=== PATIENT | female | born 1960 | race Caucasian/White ===

== ENCOUNTER 2018-05-08 17:35 | Emergency (ER) | payer BC ==
[2018-05-08] MEDS ORDERED: Zofran 4 MG/2 ML VIAL IV ONE (17:48)
--- NOTE | 2018-05-08 17:48 | ERPHSYRPT ---
- History of Present Illness Time Seen by Provider: 05/08/18 17:43 Source: patient, family Exam Limitations: no limitations Physician History: The patient is a 57-year-old female with her complaining of a sudden onset of extreme pain at the top of her head about 15 minutes before arrival. She states it feels like the top of her head is ready to "blow off". She is a little bit nauseated. She denies numbness or tingling. She denies visual problems. Just prior to the onset of the headache she had a bowel movement. She has no history of head trauma. Her past medical history is significant for GERD, allergies, right lower leg fracture, appendectomy, cholecystectomy, and breast implants. Timing/Duration: today (15 mins [employer]), sudden, improved Quality: pressure Head Pain Location: parietal Severity of Pain-Max: severe Severity of Pain-Current: mild Recent Head Trauma: no recent headache/trauma Associated Symptoms: nausea/vomiting (nausea), No loss of consciousness, No stiff neck ( he), No trouble walking, No vision changes, No visual disturbance Previous symptoms: no prior history Allergies/Adverse Reactions: No Known Drug Allergies Allergy (Unverified 05/08/18 17:51) Home Medications: Bupropion HCl 150 mg Sr [Wellbutrin SR 150 MG] 150 mg PO BID 05/08/18 [ History] Escitalopram Oxalate 10 mg PO DAILY 05/08/18 [History] Meclizine HCl 25 mg PO DAILY 05/08/18 [History] Meloxicam 15 mg PO DAILY 05/08/18 [History] Omeprazole 40 mg PO DAILY 05/08/18 [History] - Review of Systems Constitutional: Weakness Eyes: No Symptoms Ears, Nose, & Throat: No Symptoms Respiratory: No Cough, No Dyspnea Cardiac: No Chest Pain, No Edema, No Syncope Abdominal/Gastrointestinal: No Abdominal Pain, No Nausea, No Vomiting, No Diarrhea Genitourinary Symptoms: No Dysuria Musculoskeletal: No Back Pain, No Neck Pain Skin: No Rash Neurological: Headache, No Dizziness, No Focal Weakness, No Paralysis, No Parasthesia, No Seizure, No Sensory Changes, No Speech Changes Psychological: No Symptoms Endocrine: No Symptoms Hematologic/Lymphatic: No Symptoms Immunological/Allergic: No Symptoms All Other Systems: Reviewed and Negative - Nursing Vital Signs Nursing Vital Signs: Initial Vital Signs Temperature 99.0 F 05/08/18 17:37 Pulse Rate 88 05/08/18 17:37 Respiratory Rate 16 05/08/18 17:37 Blood Pressure 142/87 05/08/18 17:37 O2 Sat by Pulse Oximetry 99 05/08/18 17:37 Pain Scale Pain Intensity 1 - Physical Exam General Appearance: mild distress Eye Exam: PERRL/EOMI Ears, Nose, Throat Exam: normal ENT inspection, moist mucous membranes Neck Exam: normal inspection, supple, full range of motion, No meningismus Respiratory Exam: normal breath sounds, lungs clear Cardiovascular Exam: regular rate/rhythm, normal heart sounds Gastrointestinal/Abdominal Exam: soft, No tenderness, No distention Back Exam: normal inspection, normal range of motion Extremity Exam: normal inspection Mental Status Exam: alert, oriented x 3, cooperative motor vehicle clerk Exam: normal speech, PERRL, tongue midline, No abnormal speech, No facial droop, No hearing deficit (R), No hearing deficit (L), No tongue deviation to R , No tongue deviation to L Coordination/Gait Exam: normal cerebellar function Motor/Sensory Exam: no motor deficit, no sensory deficit Skin Exam: normal color, warm, dry, No rash SpO2 Interpretation: normal Oxygen Delivery: Room Air - CT Exams Head CT Interpretation: Discussed w/radiologist, Tele-radiologist Report, Other ( left parietal and temporal subarachnoid hemorrhage per Dr Hays (discussed with him).) Ordered Tests: Active Orders 24 hr Category Date Time Status Data Communications Technician STAT Care 05/08/18 17:49 Active Clean Catch Urine Specimen STAT Care 05/08/18 17:48 Active IV Insertion STAT Care 05/08/18 17:48 Active IV Insertion-2nd Peripheral STAT Care 05/08/18 19:01 Active Pulse Oximetry (ED) STAT Care 05/08/18 17:48 Active HEAD WITHOUT CONTRAST [CT] Stat Exams 05/08/18 17:49 Taken BMP Stat Lab 05/08/18 17:50 Completed CBC W DIFF Stat Lab 05/08/18 17:50 Completed UA W/ MICROSCOPIC Stat Lab 05/08/18 18:51 Completed Urine Triage Profile Stat Lab 05/08/18 18:51 Completed Medication Summary Generic Name Dose Route Start Last Admin Trade Name Freq PRN Reason Stop Dose Admin Sodium Chloride 1,000 mls @ 100 mls/hr 05/08/18 19:15 05/08/18 19:16 Sodium Chloride 0.9% 1000 Ml IV 06/07/18 19:14 100 mls/hr .Q10H FELIPA Administration Discontinued Medications Generic Name Dose Route Start Last Admin Trade Name Rk PRN Reason Stop Dose Admin Labetalol HCl 10 mg 05/08/18 19:30 05/08/18 19:35 Trandate 20 Mg/5 Ml Syringe IV 05/08/18 19:31 10 mg STAT ONE Administration Labetalol HCl Confirm 05/08/18 19:32 Trandate 20 Mg/5 Ml Syringe Administered 05/08/18 19:33 Dose 20 mg IV .STK-MED ONE Morphine Sulfate 4 mg 05/08/18 19:09 05/08/18 19:16 Morphine Sulfate 4 Mg Inj IV 05/08/18 19:10 4 mg STAT ONE Administration Morphine Sulfate Confirm 05/08/18 19:13 Morphine Sulfate 4 Mg Inj Administered 05/08/18 19:14 Dose 4 mg .ROUTE .STK-MED ONE Ondansetron HCl 4 mg 05/08/18 17:48 05/08/18 17:56 Zofran 4 Mg/2 Ml Vial IV 05/08/18 17:49 4 mg STAT ONE Administration Ondansetron HCl Confirm 05/08/18 17:55 Zofran 4 Mg/2 Ml Vial Administered 05/08/18 17:56 Dose 4 mg .ROUTE .STK-MED ONE Lab/Rad Data: Laboratory Result [facility] 05/08/18 17:50 05/08/18 17:50 Laboratory Results 05/08/18 05/08/18 05/08/18 Range/Units 18:51 18:51 17:50 WBC (4.0-10.5) K/mm3 RBC (4.1-5.4) M/mm3 Hgb (12.0-16.0) gm/dl Hct (35-47) % MCV (78-100) fl MCH (26-32) pg MCHC (32-36) g/dl RDW (11.5-14.0) % Plt Count (150-450) K/mm3 MPV (6-9.5) fl Gran % (36.0-66.0) % Eos # (Auto) (0-0.5) Absolute Lymphs (auto) (1.0-4.6) Absolute Monos (auto) (0.0-1.3) Lymphocytes % (24.0-44.0) % Monocytes % (0.0-12.0) % Eosinophils % (0.00-5.0) % Basophils % (0.0-0.4) % Absolute Granulocytes (1.4-6.9) Basophils # (0-0.4) Sodium 139 (137-145) mmol/L Potassium 3.6 (3.5-5.1) mmol/L Chloride 105 (98-107) mmol/L Carbon Dioxide 25 (22-30) mmol/L Anion Gap 13.0 (5-15) MEQ/L BUN 12 (7-17) mg/dL Creatinine 0.86 (0.52-1.04) mg/dL Estimated GFR > 60.0 ML/MIN Glucose 125 H (74-106) mg/dL Calcium 9.1 (8.4-10.2) mg/dL Ur Collection Type VOID Urine Color YELLOW (YELLOW) Urine Appearance CLEAR (CLEAR) Urine pH 7.0 (5-6) Ur Specific [place] 1.010 (1.005-1.025) Urine Protein NEGATIVE (Negative) Urine Ketones NEGATIVE (NEGATIVE) Urine Blood TRACE NON-HEM (0-5) Olu/ul Urine Nitrite NEGATIVE (NEGATIVE) Urine Bilirubin NEGATIVE (NEGATIVE) Urine Urobilinogen NORMAL (0-1) mg/dL Ur Leukocyte Esterase NEGATIVE (NEGATIVE) Urine Microscopic RBC 2-5 (0-2) /HPF Urine Microscopic WBC 5-10 (0-5) /HPF Ur Epithelial Cells MODERATE (FEW) /HPF Urine Bacteria FEW (NEGATIVE) /HPF Urine Culture Reflexed NO (NO) Urine Glucose NEGATIVE (NEGATIVE) mg/dL Urine Opiates Level NEGATIVE (NEGATIVE) Ur Methadone NEGATIVE (NEGATIVE) Urine Barbiturates NEGATIVE (NEGATIVE) Ur Phencyclidine (PCP) NEGATIVE (NEGATIVE) Urine Amphetamine NEGATIVE (NEGATIVE) U Benzodiazepine Level NEGATIVE (NEGATIVE) Urine Cocaine NEGATIVE (NEGATIVE) Urine Marijuana (THC) NEGATIVE (NEGATIVE) Specimen Received 05/08/18 1850 05/08/18 Range/Units 17:50 WBC 12.1 H (4.0-10.5) K/mm3 RBC 4.14 (4.1-5.4) M/mm3 Hgb 11.7 L (12.0-16.0) gm/dl Hct 35.6 (35-47) % MCV 86.0 (78-100) fl MCH 28.2 (26-32) pg MCHC 32.9 (32-36) g/dl RDW 14.5 H (11.5-14.0) % Plt Count 302 (150-450) K/mm3 MPV 11.1 H (6-9.5) fl Gran % 57.7 (36.0-66.0) % Eos # (Auto) 0.40 (0-0.5) Absolute Lymphs (auto) 3.67 (1.0-4.6) Absolute Monos (auto) 1.02 (0.0-1.3) Lymphocytes % 30.4 (24.0-44.0) % Monocytes % 8.4 (0.0-12.0) % Eosinophils % 3.3 (0.00-5.0) % Basophils % 0.2 (0.0-0.4) % Absolute Granulocytes 6.97 H (1.4-6.9) Basophils # 0.02 (0-0.4) Sodium (137-145) mmol/L Potassium (3.5-5.1) mmol/L Chloride (98-107) mmol/L Carbon Dioxide (22-30) mmol/L Anion Gap (5-15) MEQ/L BUN (7-17) mg/dL Creatinine (0.52-1.04) mg/dL Estimated GFR ML/MIN Glucose (74-106) mg/dL Calcium (8.4-10.2) mg/dL Ur Collection Type Urine Color (YELLOW) Urine Appearance (CLEAR) Urine pH (5-6) Ur Specific [place] (1.005-1.025) Urine Protein (Negative) Urine Ketones (NEGATIVE) Urine Blood (0-5) Olu/ul Urine Nitrite (NEGATIVE) Urine Bilirubin (NEGATIVE) Urine Urobilinogen (0-1) mg/dL Ur Leukocyte Esterase (NEGATIVE) Urine Microscopic RBC (0-2) /HPF Urine Microscopic WBC (0-5) /HPF Ur Epithelial Cells (FEW) /HPF Urine Bacteria (NEGATIVE) /HPF Urine Culture Reflexed (NO) Urine Glucose (NEGATIVE) mg/dL Urine Opiates Level (NEGATIVE) Ur Methadone (NEGATIVE) Urine Barbiturates (NEGATIVE) Ur Phencyclidine (PCP) (NEGATIVE) Urine Amphetamine (NEGATIVE) U Benzodiazepine Level (NEGATIVE) Urine Cocaine (NEGATIVE) Urine Marijuana (THC) (NEGATIVE) Specimen Received - Progress Progress: re-examined, unchanged Air Movement: good Progress Note: 05/08/18 19:[address] Gautam, neurosurgeon, at [facility] in [place], who declines pt and recommends transfer of pt to hospital in [place] by air transport. Dr Chisholm at [facility] was present on phone call with Dr Gautam. 05/08/18 19:26 Dr Mejia, neurosurgeon at [facility], accepts pt, ground travel. Counseled pt/family regarding: diagnosis, rad results - Departure Time of Disposition: 19:06 Departure Disposition: Transfer (transfer to [facility] in [place] per Dr Mejia.) Clinical Impression: Subarachnoid hemorrhage Condition: Good Critical Care Time: No Referrals: ROSA MARIA DAVE [Primary Care Provider] -
[2018-05-08] MEDS ORDERED: Zofran 4 MG/2 ML VIAL ONE (17:55)
[2018-05-08 18:27] LABS: BLOOD UREA NITROGEN 12 mg/dL (7-17); CHLORIDE 105 mmol/L (98-107); Calcium 9.1 mg/dL (8.4-10.2); Carbon Dioxide 25 mmol/L (22-30); Creatinine 1 0.86 mg/dL (0.52-1.04); Glucose 125 mg/dL (74-106); Potassium 3.6 mmol/L (3.5-5.1); SODIUM 139 mmol/L (137-145)
[2018-05-08 18:28] LABS: BASOPHIL % 0.2 % (0.0-0.4); Basophil (Absolute #) 0.02 (0-0.4); Eosinophil % 3.3 % (0.00-5.0); Granulocyte Absolute (ANC) 6.97 (1.4-6.9); Granulocytes % 57.7 % (36.0-66.0); Hematocrit 35.6 % (35-47); Hemoglobin 11.7 gm/dl (12.0-16.0); Lymphocyte (Absolute #) 3.67 (1.0-4.6); Lymphocytes % 30.4 % (24.0-44.0); Mean Corpuscular Hgb Concent. 32.9 g/dl (32-36); Mean Platelet Volume 11.1 fl (6-9.5); Monocyte (Absolute #) 1.02 (0.0-1.3); Monocytes % 8.4 % (0.0-12.0); Platelet Count 302 K/mm3 (150-450); Red Blood Count 4.14 M/mm3 (4.1-5.4); Red Cell Distribution Width 14.5 % (11.5-14.0); White Blood Count 12.1 K/mm3 (4.0-10.5)
[2018-05-08 18:59] LABS: Mean Corpuscular Hemoglobin 28.2 pg (26-32)
[2018-05-08] MEDS ORDERED: MORPHINE SULFATE 4 MG INJ IV ONE (19:09)
[2018-05-08 19:12] LABS: Appearance CLEAR (CLEAR)
[2018-05-08 19:13] LABS: Bacteria FEW /HPF (NEGATIVE); Bilirubin NEGATIVE (NEGATIVE); Blood TRACE NON-HEM Ery/ul (0-5); Epithelial Cells MODERATE /HPF (FEW); Glucose NEGATIVE (NEGATIVE); Ketones NEGATIVE (NEGATIVE); Leukocyte Esterase NEGATIVE (NEGATIVE); Nitrite NEGATIVE (NEGATIVE); Protein,Urine Dip NEGATIVE (Negative); Urobilinogen NORMAL mg/dL (0-1)
[2018-05-08] MEDS ORDERED: MORPHINE SULFATE 4 MG INJ ONE (19:13)
[2018-05-08] MEDS ORDERED: Sodium Chloride 0.9% 1000 ML 1,000 ML ONE (19:13)
[2018-05-08] MEDS ORDERED: Sodium Chloride 0.9% 1000 ML 1,000 ML IV SCH (19:15)
[2018-05-08 19:20] LABS: Amphetamine,Urine NEGATIVE (NEGATIVE); Barbiturate,Urine NEGATIVE (NEGATIVE); Benzodiazepine,Urine NEGATIVE (NEGATIVE); Cocaine,Urine NEGATIVE (NEGATIVE); Methadone,Urine NEGATIVE (NEGATIVE); Opiate,Urine NEGATIVE (NEGATIVE); PCP,Urine NEGATIVE (NEGATIVE); THC,Urine NEGATIVE (NEGATIVE)
[2018-05-08] MEDS ORDERED: TRANDATE 20 MG/5 ML SYRINGE IV ONE ×3 (19:30→19:59)
[2018-05-08 19:49] VITALS: BP 133/85; PULSE 81; O2SAT 98
--- NOTE | 2018-05-08 20:34 | XRAY ---
Indication: Headache and nausea. Pressure behind eyes. Multiple contiguous axial images obtained through the head without contrast. Comparison: None Very tiny subarachnoid blood in the left sylvian fissure. No hydrocephalus or mass effect. Burk-white matter differentiation preserved. Fourth ventricle is midline. Bony calvarium intact. Visualized paranasal sinuses and mastoid air cells are clear. Impression: Very tiny left sylvian fissure subarachnoid blood of uncertain etiology. Comment: Preliminary interpretation was made by [facility]. No discrepancy. CTDI 50.97
== END 2018-05-08 20:05 | disposition short-term general hospital (02) ==
LOC: ED 17:35
DX: I60.9 Nontraumatic subarachnoid hemorrhage, unspecified (principal); Z79.899 Other long term (current) drug therapy
CPT/HCPCS: 36000; 36415; 70450; 80048; 80307; 81000; 85025; 93041; 96360; 96374; 96375; 99285; J2270; J2405

== ENCOUNTER 2019-10-02 08:32 | Inpatient (IN) | payer BC ==
[2019-10-02] MEDS: POTASSIUM CHLORIDE 20 mEq IN WATER 100ML 20 MEQ/100 ML BAG IV SCH ×2 (18:16→22:22)
[2019-10-02] MEDS: Sodium Chloride 0.9% 1000 ML 1,000 ML IV SCH (18:16)
[2019-10-02] MEDS: TYLENOL 325 MG PO PRN ×2 (18:17→22:35)
[2019-10-02 18:27] LABS: Iron 18 ug/dL (37-170); Iron Saturation 6 % (20-39); TIBC 292 ug/dL (265-462)
[2019-10-02 19:08] LABS: Ferritin 11.2 ng/mL (11.1-264); MAGNESIUM 1.6 mg/dL (1.6-2.3)
[2019-10-02] MEDS ORDERED: Magnesium Sulfate 1 GM/2 ML VIAL IV ONE (20:15)
[2019-10-02] MEDS ORDERED: Klor Con 10 MEQ PO ONE (20:20)
[2019-10-02] MEDS ORDERED: Vitamin B-12 500 MCG PO ONE (20:30)
[2019-10-02] MEDS ORDERED: Magnesium Sulfate 1 GM/2 ML VIAL ONE (20:34)
[2019-10-02] MEDS ORDERED: Sodium Chloride 0.9% 500 ML 500 ML IV ONE (22:12)
[2019-10-02] MEDS ORDERED: POTASSIUM CHLORIDE 20 mEq IN WATER 100ML 100 ML IV ONE (22:14)
[2019-10-02] MEDS: Pepcid 20 MG PO SCH (22:30)
[2019-10-02] MEDS: FEOSOL 325 MG PO SCH (22:30)
[2019-10-02] MEDS: Magnesium 1 Gm / 100 Ml D5W*** 100 ML IV SCH (22:30)
[2019-10-02] MEDS ORDERED: Sodium Chloride 0.9% 500 ML 500 ML IV SCH (22:30)
[2019-10-03] MEDS: Magnesium 1 Gm / 100 Ml D5W*** 100 ML IV SCH (00:11)
[2019-10-03 01:52] LABS: Appearance CLEAR (CLEAR); Bilirubin NEGATIVE (NEGATIVE); Blood NEGATIVE Ery/ul (0-5); Glucose NEGATIVE (NEGATIVE); Ketones NEGATIVE (NEGATIVE); Leukocyte Esterase NEGATIVE (NEGATIVE); Mucus SLIGHT /HPF (NEGATIVE); Nitrite NEGATIVE (NEGATIVE); Protein,Urine Dip NEGATIVE (Negative); Specific Gravity 1.004 (1.005-1.025); Urobilinogen NEGATIVE mg/dL (0-1)
[2019-10-03 02:04] LABS: Creatinine Urine 37.5 mg/dL
[2019-10-03] MEDS: Sodium Chloride 0.9% 1000 ML 1,000 ML IV SCH ×3 (02:29→18:23)
[2019-10-03 04:24] LABS: ANION GAP 10.5 MEQ/L (5-15); Calcium 8.3 mg/dL (8.4-10.2); Creatinine 1 2.07 mg/dL (0.52-1.04)
[2019-10-03 04:30] LABS: Potassium 2.3 mmol/L (3.5-5.1)
[2019-10-03 04:33] LABS: Hematocrit 27.6 % (35-47); Mean Cell Volume 85.4 fl (78-100); Mean Corpuscular Hemoglobin 27.9 pg (26-32); Mean Corpuscular Hgb Concent. 32.6 g/dl (32-36); Mean Platelet Volume 11.1 fl (6-9.5); Platelet Count 228 K/mm3 (150-450); Red Blood Count 3.23 M/mm3 (4.1-5.4); Red Cell Distribution Width 17.3 % (11.5-14.0)
[2019-10-03] MEDS ORDERED: POTASSIUM CHLORIDE 20 mEq IN WATER 100ML 20 MEQ/100 ML BAG IV ONE ×2 (04:35→08:51)
[2019-10-03] MEDS: TYLENOL 325 MG PO PRN (05:44)
[2019-10-03] MEDS ORDERED: Klor Con 10 MEQ PO ONE ×2 (08:05→17:11)
[2019-10-03] MEDS ORDERED: Wellbutrin SR 150 MG PO SCH (10:00)
[2019-10-03] MEDS: Colace 100 MG PO SCH ×2 (10:10→21:00)
[2019-10-03] MEDS: Vitamin B-12 500 MCG PO SCH (10:11)
[2019-10-03] MEDS: ANTIVERT 25 MG PO SCH (10:11)
[2019-10-03] MEDS: FEOSOL 325 MG PO SCH ×2 (10:12→21:00)
[2019-10-03] MEDS: DELTASONE 20 MG PO SCH (10:12)
[2019-10-03] MEDS: Protonix 40MG Tablet PO SCH (10:12)
[2019-10-03] MEDS: SENOKOT 8.6 MG PO PRN (10:13)
[2019-10-03] MEDS: THERAGRAN MULTIVITAMIN PO SCH (10:13)
[2019-10-03] MEDS: Lexapro 10 MG PO SCH (10:13)
--- NOTE | 2019-10-03 10:26 | XRAY ---
Exam: Two-view chest from 10/03/2019. Comparison: None. Indication: Weight loss in the past 2 months, previous cigarette smoker, status post breast augmentation, patient states she was sick 3 weeks ago and short of breath at that time. Findings: Upright PA and lateral chest films are submitted for evaluation. The transverse heart size is normal. Minimal tortuosity of the aortic arch is seen. A few small right perihilar granulomatous calcifications are seen. Numerous leads overlie the chest, most prominently in the projection of the right hemidiaphragm. A calcified granuloma is seen within the peripheral right midlung field. There is also a small calcified granuloma at the lateral left lung base. No air space infiltrates, vascular congestion, pneumothorax, or pleural fluid is seen. Mild degenerative changes are seen within the upper mid thoracic spine. No acute osseous process is seen. Small calcified granulomas are seen within the spleen in the left upper quadrant. Some surgical clips are seen within the upper abdomen on lateral radiograph, likely due to prior cholecystectomy. Impression: 1. I see no evidence of acute cardiopulmonary process. 2. Mild old healed granulomatous disease.
--- NOTE | 2019-10-03 13:05 | HP ---
HISTORY OF PRESENT ILLNESS: This is a 59 year-old patient who presented to the clinic yesterday complaining of left wrist pain. She said it started suddenly and woke her up from sleep the night before. She denied any known injury. There was concern for possible gout so I ordered a uric acid level as well as x-ray since has not had any other blood work done within the last year. I also ordered a basic metabolic panel. I was then called with critical potassium of 2.1 and her creatinine was elevated to 2 as well. The patient was called and was agreeable to being a direct admission for IV fluids and potassium replacement. The patient reports that she had flu-like symptoms for two weeks. She described this as loose stools but not really diarrhea, feeling tired and nothing tasting good. She had decreased oral intake during that time. She reports vomiting for three days during that time, nausea the whole time. She had a little bit of cough and a little bit of rhinorrhea. Her baseline weight is 145 pounds and she reports she has lost weight over the past two months about 20 pounds with 5 pounds of that during the illness. She reports constipation on and off for months. She denies any abdominal pain. Reports she has not had any stools for the past five days. Her no blood in her stool. She has never had screening for colon cancer. She reports usually she just eats one meal a day due to being busy and decreased appetite. REVIEW OF SYSTEMS: No fevers. No lower extremity edema. No pain with urination. No hematuria. Otherwise review of systems as noted in the history of present illness. MEDICATIONS: Please see the home medication reconciliation form which I have reviewed. ALLERGIES: NKDA. PAST MEDICAL HISTORY: Anxiety. Gastroesophageal reflux disease for ten years which she has taken medication for. Voice change for which she saw ENT for. She reports they did a scope and found a "pool of blood" and then started her on another acid medicine. History of a brain aneurysm in 2018 status post surgery. PAST SURGICAL HISTORY: Cholecystectomy. Appendectomy. Brain aneurysm surgery. Cyst removed from her right wrist. Two sections. Tubal ligation. Breast augmentation. SOCIAL HISTORY: She quit smoking in May 2018 and had smoked for 40 years. Rare alcohol use. She is and lives with her . They have three dogs. FAMILY HISTORY: Her mother is living and has hypertension, headaches, diabetes mellitus type 2, borderline macular degeneration and glaucoma. Her father is and in his sleep. PHYSICAL EXAMINATION: VITAL SIGNS: Temperature current 97.7F, heart rate 63, respiratory rate 16, blood pressure 109/55, weight 60 kg. Oxygen saturation 96% on room air. GENERAL: The patient is a pleasant talkative lady lying in bed in no acute distress. Her sister is at the bedside. CVS: She has a regular rate and rhythm. No murmurs, gallops or rubs are appreciated. CHEST: Clear to auscultation bilaterally. No crackles or wheezes. ABDOMEN: Soft, nontender, nondistended with normal bowel sounds. EXTREMITIES: No clubbing, cyanosis or edema in the lower extremities. Her left wrist is mildly swollen with tenderness medially below her fifth digit and her wrist. No rashes. No erythema. LABORATORY DATA AND TESTS: Hemoglobin 9.0. Potassium 2.3, creatinine 2.0. UA was negative. Vitamin B12 low at 228. Iron low at 18. Magnesium 1.6. ASSESSMENT AND PLAN: 1) HYPOKALEMIA: The etiology of this could be poor oral intake versus renal etiology. Her potassium was 2.1 yesterday. She has received 40 mEq IV as well as 20 mEq by mouth and her repeat potassium was 2.3. She has another 40 mEq ordered IV and 20 mEq by mouth and will plan to recheck her potassium. Her magnesium was the low end of normal and so I gave her 2 gm of magnesium sulfate to try to help also the potassium replenishment. The patient was encouraged to start eating regular meals at home with three meals a day and not to skip meals. 2) ANEMIA: She seems to have an iron deficiency anemia. I have ordered her stool to be tested for blood. The patient was encouraged to follow up on all cancer screenings recommended for her age which would include a low dose CT scan to screen for lung cancer, colon cancer screening and mammogram for breast cancer screening. I have started her on iron, ferrous sulfate 325 mg p.o. b.i.d. as well as a multivitamin and also vitamin B12. 3) WEIGHT LOSS: Again the etiology of this is unclear at this time. Will plan for her to have cancer screenings as an outpatient. If her weight does not increase with this she may need a CT scan of her abdomen and pelvis. 4) ACUTE RENAL FAILURE: We are giving her IV fluids at 150 ml/hour, checking her BMP every morning. I have ordered renal ultrasound bilaterally to assess the structures. She does not have any protein in her urine, this may be due to dehydration. 5) MILD DEHYDRATION: Will continue with IV fluids. 6) CONSTIPATION: Will start docusate and use Senna as needed. 7) LEFT WRIST PAIN: Her x-ray was without fracture. It does show some arthritis. I have started her on prednisone 20 mg p.o. daily to try to help with the pain and ordered a wrist splint. 8) DEEP VENOUS THROMBOSIS PROPHYLAXIS: Will start with SARMAD jeronimo.
--- NOTE | 2019-10-03 14:41 | XRAY ---
Exam: Bilateral renal ultrasound from 10/03/2019. Comparison: None. Indication: 59-year-old female with acute renal failure. Technique: Longitudinal and transverse sonograms were obtained of each kidney. Findings: The right kidney measures 8.2 cm in length and 4.4 cm x 4.1 cm in cross section. No hydronephrosis is seen. No solid renal mass or significant cyst is seen. The renal cortical echogenicity appears grossly unremarkable. No significant renal cortical thinning is seen. The left kidney measures 9.3 cm in length and 5.4 cm x 4.8 cm in cross section. No hydronephrosis is seen. No solid left renal mass or significant cyst is seen. Renal cortical echogenicity appears unremarkable without evidence of cortical thinning or lobar atrophy. Urinary bladder volume was calculated at 12.9 ml. The bladder appears almost empty. Evidently, the patient voided prior to this exam. Impression: 1. I see no evidence of hydronephrosis. Nor do I see any evidence of solid renal mass or significant cyst. 2. The right renal length is mildly decreased measuring 8.2 cm in length. This may be slightly underestimated. I do not see evidence of lobar atrophy or significant renal cortical thinning. Renal cortical echogenicity appears unremarkable. 2. The urinary bladder is almost empty. Evidently, the patient voided just prior to this exam.
[2019-10-03] MEDS: Pepcid 20 MG PO SCH (21:00)
[2019-10-04] MEDS: Sodium Chloride 0.9% 1000 ML 1,000 ML IV SCH ×2 (03:09→06:00)
[2019-10-04 04:50] LABS: Absolute Neutrophil Ct (ANC) 7.23 (1.4-6.9); BASOPHIL % 0.1 % (0.0-0.4); Basophil (Absolute #) 0.01 (0-0.4); Eosinophil % 0.1 % (0.00-5.0); Eosinophil (Absolute #) 0.01 (0-0.5); Lymphocyte (Absolute #) 1.22 (1.0-4.6); Lymphocytes % 13.6 % (24.0-44.0); Mean Cell Volume 86.8 fl (78-100); Mean Corpuscular Hgb Concent. 32.3 g/dl (32-36); Mean Platelet Volume 10.8 fl (6-9.5); Monocyte (Absolute #) 0.48 (0.0-1.3); Monocytes % 5.4 % (0.0-12.0); Neutrophil % 80.8 % (36.0-66.0); Platelet Count 285 K/mm3 (150-450); Red Blood Count 3.57 M/mm3 (4.1-5.4); Red Cell Distribution Width 18.1 % (11.5-14.0)
[2019-10-04 05:06] LABS: ANION GAP 13.3 MEQ/L (5-15); Calcium 8.7 mg/dL (8.4-10.2); Creatinine 1 1.79 mg/dL (0.52-1.04); MAGNESIUM 2.1 mg/dL (1.6-2.3)
[2019-10-04 05:07] LABS: Potassium 2.7 mmol/L (3.5-5.1)
[2019-10-04] MEDS: POTASSIUM CHLORIDE 20 mEq IN WATER 100ML 20 MEQ/100 ML BAG IV SCH (06:02)
--- NOTE | 2019-10-04 08:37 | PCM.NOTE ---
Date and Time: 10/04/19831 Subjective Assessment: Patient reports she had a stool but it was hard and she still feels constipated. She reports her left wrist does feel better now. She reports that her mouth continues to feel dry. Objective Exam General Appearance: no apparent distress, alert, other (dry mouth) Neurologic Exam: alert, cooperative, normal mood/affect Skin Exam: normal color, warm, dry Respiratory Exam: normal breath sounds, lungs clear, No crackles/rales, No rhonchi, No wheezing Cardiovascular Exam: regular rate/rhythm, normal heart sounds, No murmur, No friction rub, No gallop Gastrointestinal/Abdomen Exam: soft, normal bowel sounds, No tenderness, No distention, No mass Extremity Exam: other (no c/c/e; left wrist in brace and removed brace and no swelling and no tenderness today. She is able to touch her thumb to each finger individually.) OBJECTIVE DATA Vital Signs: Vital Signs - 24 hr Temp Pulse Resp BP Pulse Ox 10/04/19 08:00 98.1 F 74 18 110/56 98 10/04/19 04:00 97.9 F 73 16 121/58 96 10/03/19 23:50 98.1 F 77 16 114/59 97 10/03/19 20:00 97.7 F 73 18 117/56 98 10/03/19 16:00 98.3 F 75 16 101/53 98 10/03/19 12:00 98.1 F 71 16 116/61 97 Pain Assessment - Last Documented Pain Intensity 0 Pain Scale Used 0-10 Pain Scale Intake and Output: Intake & Output 10/02/19 10/03/19 10/04/19 10/05/19 06:59 06:59 06:59 06:59 Intake Total 2440 3794 Output Total 1200 1300 Balance 1240 2494 Weight 60 kg Lab Results: Lab Results-Last 24 Hours 10/03/19 10/04/19 10/04/19 Range/Units 16:45 01:16 04:35 WBC 9.0 (4.0-10.5) K/mm3 RBC 3.57 L (4.1-5.4) M/mm3 Hgb 10.0 L (12.0-16.0) gm/dl Hct 31.0 L (35-47) % MCV 86.8 (78-100) fl MCH 28.0 (26-32) pg MCHC 32.3 (32-36) g/dl RDW 18.1 H (11.5-14.0) % Plt Count 285 (150-450) K/mm3 MPV 10.8 H (6-9.5) fl Gran % 80.8 H (36.0-66.0) % Eos # (Auto) 0.01 (0-0.5) Absolute Lymphs (auto) 1.22 (1.0-4.6) Absolute Monos (auto) 0.48 (0.0-1.3) Lymphocytes % 13.6 L (24.0-44.0) % Monocytes % 5.4 (0.0-12.0) % Eosinophils % 0.1 (0.00-5.0) % Basophils % 0.1 (0.0-0.4) % Absolute Granulocytes 7.23 H (1.4-6.9) Basophils # 0.01 (0-0.4) Sodium (137-145) mmol/L Potassium 2.8 L* D (3.5-5.1) mmol/L Chloride (98-107) mmol/L Carbon Dioxide (22-30) mmol/L Anion Gap (5-15) MEQ/L BUN (7-17) mg/dL Creatinine (0.52-1.04) mg/dL Estimated GFR ML/MIN Glucose (74-106) mg/dL Calcium (8.4-10.2) mg/dL Magnesium (1.6-2.3) mg/dL Stool Occult Bld Scrn NEGATIVE (NEGATIVE) 10/04/19 Range/Units 04:35 WBC (4.0-10.5) K/mm3 RBC (4.1-5.4) M/mm3 Hgb (12.0-16.0) gm/dl Hct (35-47) % MCV (78-100) fl MCH (26-32) pg MCHC (32-36) g/dl RDW (11.5-14.0) % Plt Count (150-450) K/mm3 MPV (6-9.5) fl Gran % (36.0-66.0) % Eos # (Auto) (0-0.5) Absolute Lymphs (auto) (1.0-4.6) Absolute Monos (auto) (0.0-1.3) Lymphocytes % (24.0-44.0) % Monocytes % (0.0-12.0) % Eosinophils % (0.00-5.0) % Basophils % (0.0-0.4) % Absolute Granulocytes (1.4-6.9) Basophils # (0-0.4) Sodium 145 (137-145) mmol/L Potassium 2.7 L* (3.5-5.1) mmol/L Chloride 120 H (98-107) mmol/L Carbon Dioxide 15 L* (22-30) mmol/L Anion Gap 13.3 (5-15) MEQ/L BUN 11 (7-17) mg/dL Creatinine 1.79 H (0.52-1.04) mg/dL Estimated GFR 30.6 ML/MIN Glucose 97 (74-106) mg/dL Calcium 8.7 (8.4-10.2) mg/dL Magnesium 2.1 (1.6-2.3) mg/dL Stool Occult Bld Scrn (NEGATIVE) Radiology Exams: Radiology Procedures Category Date Time Status CHEST 2 VIEWS (PA AND LAT) Routine Exams 10/03/19 09:46 Completed Renal Ultrasound [KIDNEY] [US] Routine Exams 10/03/19 14:11 Completed Assessment/Plan (1) Acute renal failure Current Visit: No Status: Acute Onset Date: ~10/02/19 Assessment & Plan: Creatinine has improved but her baseline is a normal creatinine. Will consult nephrology. Renal US was good. Microalbumin in urine normal. (2) Hypokalemia Current Visit: No Status: Acute Onset Date: ~10/02/19 Assessment & Plan: Continue with replacement. Consult nephrology. Will check urine potassium. Code(s): E87.6 - HYPOKALEMIA (3) Anemia Current Visit: Yes Status: Acute Qualifiers: Anemia type: iron deficiency Assessment & Plan: Continue iron and vit b 12; stool was negative for blood. Code(s): D64.9 - ANEMIA, UNSPECIFIED (4) Left wrist pain Current Visit: No Status: Acute Onset Date: ~10/02/19 Assessment & Plan: Improved with splint and prednisone. Code(s): M25.532 - PAIN IN LEFT WRIST (5) Dry mouth Current Visit: Yes Status: Acute Assessment & Plan: Will check blood work for Sjorgen's syndrome. Will check ALKA, RF, Ro and La antibodies. Code(s): R68.2 - DRY MOUTH, UNSPECIFIED
[2019-10-04] MEDS: SENOKOT 8.6 MG PO PRN (09:57)
[2019-10-04] MEDS: Colace 100 MG PO SCH ×2 (09:57→21:25)
[2019-10-04] MEDS: ANTIVERT 25 MG PO SCH (09:57)
[2019-10-04] MEDS: FEOSOL 325 MG PO SCH ×2 (09:57→21:25)
[2019-10-04] MEDS: Lexapro 10 MG PO SCH (09:57)
[2019-10-04] MEDS: Vitamin B-12 500 MCG PO SCH (09:58)
[2019-10-04] MEDS: Protonix 40MG Tablet PO SCH (09:58)
[2019-10-04] MEDS: DELTASONE 20 MG PO SCH (09:58)
[2019-10-04] MEDS: THERAGRAN MULTIVITAMIN PO SCH (09:58)
[2019-10-04] MEDS: TYLENOL 325 MG PO PRN (10:07)
[2019-10-04] MEDS ORDERED: Potassium Chloride 20 MEQ INJECTION 20 MEQ, XYLOCAINE 1% HCL 20 ML MDV*** 2 ML in Sodiu... IV ONE (13:15)
[2019-10-04] MEDS ORDERED: Klor Con 10 MEQ PO ONE (18:35)
[2019-10-04] MEDS ORDERED: Miralax Powder 17GM PACKET PO PRN (21:05)
[2019-10-04] MEDS ORDERED: Dulcolax 10 MG SUPP PR PRN (21:08)
[2019-10-04] MEDS: Pepcid 20 MG PO SCH (21:25)
[2019-10-05] MEDS: Sodium Chloride 0.9% 1000 ML 1,000 ML IV SCH (03:42)
[2019-10-05 05:02] LABS: BASOPHIL % 0.1 % (0.0-0.4); Basophil (Absolute #) 0.01 (0-0.4); Eosinophil % 0.2 % (0.00-5.0); Eosinophil (Absolute #) 0.02 (0-0.5); Hematocrit 27.4 % (35-47); Hemoglobin 8.7 gm/dl (12.0-16.0); Lymphocyte (Absolute #) 1.97 (1.0-4.6); Lymphocytes % 22.1 % (24.0-44.0); Mean Cell Volume 87.3 fl (78-100); Mean Corpuscular Hemoglobin 27.7 pg (26-32); Mean Corpuscular Hgb Concent. 31.8 g/dl (32-36); Mean Platelet Volume 10.2 fl (6-9.5); Monocyte (Absolute #) 0.52 (0.0-1.3); Monocytes % 5.8 % (0.0-12.0); Neutrophil % 71.8 % (36.0-66.0); Platelet Count 248 K/mm3 (150-450); Red Blood Count 3.14 M/mm3 (4.1-5.4); Red Cell Distribution Width 18.3 % (11.5-14.0); White Blood Count 8.9 K/mm3 (4.0-10.5)
[2019-10-05 05:19] LABS: ANION GAP 9.8 MEQ/L (5-15); Calcium 8.5 mg/dL (8.4-10.2); Creatinine 1 1.73 mg/dL (0.52-1.04)
[2019-10-05 05:30] LABS: Potassium 2.8 mmol/L (3.5-5.1)
[2019-10-05] MEDS ORDERED: Klor Con 10 MEQ PO ONE (06:00)
[2019-10-05] MEDS ORDERED: Potassium Chloride 20 MEQ INJECTION 20 MEQ, XYLOCAINE 1% HCL 20 ML MDV*** 2 ML in Sodiu... IV ONE (07:15)
--- NOTE | 2019-10-05 09:11 | PCM.NOTE ---
Date and Time: 10/05/19905 Subjective Assessment: Patient was able to have a large stool yesterday but notes that parts of it looked black. She has had some chronic constipation. Dr. Alvarez plans to see her today and I did discuss with him on the phone her labs and presenting symptoms. Her left hand is not bothering her at this time and she continues to wear the brace. She has not had any swelling in her legs. - Review of Systems Constitutional: No Symptoms Respiratory: No Symptoms Cardiac: No Symptoms Abdominal/Gastrointestinal: Constipation Genitourinary Symptoms: No Symptoms Musculoskeletal: No Symptoms Skin: No Symptoms Objective Exam General Appearance: no apparent distress, other ( and sister at bedside) Neurologic Exam: alert, cooperative Skin Exam: normal color, warm, dry, No rash Respiratory Exam: normal breath sounds, lungs clear, No crackles/rales, No rhonchi, No wheezing Cardiovascular Exam: regular rate/rhythm, normal heart sounds, No murmur, No friction rub, No gallop Gastrointestinal/Abdomen Exam: soft, normal bowel sounds, No tenderness Extremity Exam: normal inspection, other (no c/c/e) OBJECTIVE DATA Vital Signs: Vital Signs - 24 hr Temp Pulse Resp BP Pulse Ox 10/05/19 07:31 98.6 F 66 18 108/61 97 10/05/19 04:15 98.4 F 77 16 105/61 98 10/05/19 00:10 98.6 F 74 17 106/61 97 10/04/19 20:00 97.5 F 78 16 97/53 100 10/04/19 16:00 97.9 F 75 16 127/61 93 L 10/04/19 12:00 97.9 F 74 16 129/58 95 Pain Assessment - Last Documented Pain Intensity 0 Pain Scale Used 0-10 Pain Scale Intake and Output: Intake & Output 10/03/19 10/04/19 10/05/19 10/06/19 06:59 06:59 06:59 06:59 Intake Total 2440 3794 2279 120 Output Total 1200 1300 3150 200 Balance 1240 2494 -871 -80 Weight 60 kg 61.2 kg Lab Results: Lab Results-Last 24 Hours 10/04/19 10/04/19 10/04/19 Range/Units 08:00 09:05 18:00 WBC (4.0-10.5) K/mm3 RBC (4.1-5.4) M/mm3 Hgb (12.0-16.0) gm/dl Hct (35-47) % MCV (78-100) fl MCH (26-32) pg MCHC (32-36) g/dl RDW (11.5-14.0) % Plt Count (150-450) K/mm3 MPV (6-9.5) fl Gran % (36.0-66.0) % Eos # (Auto) (0-0.5) Absolute Lymphs (auto) (1.0-4.6) Absolute Monos (auto) (0.0-1.3) Lymphocytes % (24.0-44.0) % Monocytes % (0.0-12.0) % Eosinophils % (0.00-5.0) % Basophils % (0.0-0.4) % Absolute Granulocytes (1.4-6.9) Basophils # (0-0.4) Sodium (137-145) mmol/L Potassium 3.1 L (3.5-5.1) mmol/L Chloride (98-107) mmol/L Carbon Dioxide (22-30) mmol/L Anion Gap (5-15) MEQ/L BUN (7-17) mg/dL Creatinine (0.52-1.04) mg/dL Estimated GFR ML/MIN Glucose (74-106) mg/dL Calcium (8.4-10.2) mg/dL Urine Potassium 21.5 mmol/L Rheumatoid Factor Scrn NEGATIVE (Negative) 10/05/19 10/05/19 Range/Units 04:42 04:42 WBC 8.9 (4.0-10.5) K/mm3 RBC 3.14 L (4.1-5.4) M/mm3 Hgb 8.7 L (12.0-16.0) gm/dl Hct 27.4 L (35-47) % MCV 87.3 (78-100) fl MCH 27.7 (26-32) pg MCHC 31.8 L (32-36) g/dl RDW 18.3 H (11.5-14.0) % Plt Count 248 (150-450) K/mm3 MPV 10.2 H (6-9.5) fl Gran % 71.8 H (36.0-66.0) % Eos # (Auto) 0.02 (0-0.5) Absolute Lymphs (auto) 1.97 (1.0-4.6) Absolute Monos (auto) 0.52 (0.0-1.3) Lymphocytes % 22.1 L (24.0-44.0) % Monocytes % 5.8 (0.0-12.0) % Eosinophils % 0.2 (0.00-5.0) % Basophils % 0.1 (0.0-0.4) % Absolute Granulocytes 6.40 (1.4-6.9) Basophils # 0.01 (0-0.4) Sodium 145 (137-145) mmol/L Potassium 2.8 L* (3.5-5.1) mmol/L Chloride 122 H (98-107) mmol/L Carbon Dioxide 16 L* (22-30) mmol/L Anion Gap 9.8 (5-15) MEQ/L BUN 8 (7-17) mg/dL Creatinine 1.73 H (0.52-1.04) mg/dL Estimated GFR 31.8 ML/MIN Glucose 89 (74-106) mg/dL Calcium 8.5 (8.4-10.2) mg/dL Urine Potassium mmol/L Rheumatoid Factor Scrn (Negative) Radiology Exams: Radiology Procedures Category Date Time Status CHEST 2 VIEWS (PA AND LAT) Routine Exams 10/03/19 09:46 Completed Renal Ultrasound [KIDNEY] [US] Routine Exams 10/03/19 14:11 Completed Multi-Disciplinary Progress Notes: Multi-Disciplinary Progress Notes 10/04/19 09:19 Case Management Note by Rosa Maria Calderon NO NEW NEEDS IDENTIFIED AT THIS TIME REGARDING DC, WILL CONTINUE TO FOLLOW Initialized on 10/04/19 09:19 - END OF NOTE Assessment/Plan (1) Acute renal failure Current Visit: No Status: Acute Onset Date: ~10/02/19 Assessment & Plan: This has improved some with IV fluids; Dr. Alvarez plans to see her today. 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 Discussed with Dr. Alvarez and he recommended potassium 40 meq every 4 hours. Her chloride is high so when speaking with the pharmacistBentley, He said we have potassium bicarbonate that we could use instead so an order was written for potassium bicarbonate 50 meq po 5 x a day. She got 40 meq of KCl at 6 am and also has 20 meq KCl rider going in now. She got 100 meq of potassium on 10/03/19 and 60 meq of potassium on 10/04/19. Code(s): E87.6 - HYPOKALEMIA (3) Anemia Current Visit: Yes Status: Acute Qualifiers: Anemia type: iron deficiency Assessment & Plan: Continue iron and vit B 12. Code(s): D64.9 - ANEMIA, UNSPECIFIED (4) Left wrist pain Current Visit: No Status: Acute Onset Date: ~10/02/19 Assessment & Plan: Continue prednisone and wrist brace. Code(s): M25.532 - PAIN IN LEFT WRIST (5) Dry mouth Current Visit: Yes Status: Acute Assessment & Plan: labs sent to check for lupus and Sjorgen's. Code(s): R68.2 - DRY MOUTH, UNSPECIFIED
[2019-10-05] MEDS: ANTIVERT 25 MG PO SCH (10:40)
[2019-10-05] MEDS: Colace 100 MG PO SCH ×2 (10:40→20:51)
[2019-10-05] MEDS: FEOSOL 325 MG PO SCH ×2 (10:40→20:50)
[2019-10-05] MEDS: Lexapro 10 MG PO SCH (10:40)
[2019-10-05] MEDS: DELTASONE 20 MG PO SCH (10:40)
[2019-10-05] MEDS: Vitamin B-12 500 MCG PO SCH (10:41)
[2019-10-05] MEDS: Protonix 40MG Tablet PO SCH (10:41)
[2019-10-05] MEDS: THERAGRAN MULTIVITAMIN PO SCH (10:41)
[2019-10-05 10:53] LABS: SSA IgG Antibody <0.2 AI (0.0-1.0); SSB IgG Antibody <0.2 AI (0.0-1.0)
[2019-10-05] MEDS: POTASSIUM CHLORIDE 20 mEq IN WATER 100ML 20 MEQ/100 ML BAG IV SCH (11:00)
[2019-10-05 11:06] LABS: CENTROMERE B AB-IgG >8.0 AI (0.0-1.0); DNA DS AB-IgG <1 IU/mL (0-4); RIBONUCLEIC IgG AB <0.2 AI (0.0-1.0); RIBOSOMAL P PROTEIN IgG AB <0.2 AI (0.0-1.0); SCLERODERMA IgG (ANTI SCL 70) <0.2 AI (0.0-1.0); SMITH/RNP IgG AB <0.2 AI (0.0-1.0); SSA(RO)(ENA)AB IgG <0.2 AI (0.0-1.0); SSB(LA)(ENA)ABIgG <0.2 AI (0.0-1.0)
[2019-10-05] MEDS: Miralax Powder 17GM PACKET PO SCH ×2 (11:08→17:04)
[2019-10-05] MEDS: K-LYTE 25 MEQ PO SCH ×4 (11:08→22:19)
[2019-10-05] MEDS: SENOKOT 8.6 MG PO PRN (11:09)
[2019-10-05 14:15] LABS: ANA Interpretation See Result Note:
[2019-10-05 14:20] LABS: MAGNESIUM 1.7 mg/dL (1.6-2.3); Potassium 3.5 mmol/L (3.5-5.1)
[2019-10-05] MEDS: Magnesium 1 Gm / 100 Ml D5W*** 100 ML IV SCH ×2 (18:10→19:03)
[2019-10-05 20:32] LABS: Amourphous Crystal FEW /HPF (NEGATIVE); Appearance CLEAR (CLEAR); Bilirubin NEGATIVE (NEGATIVE); Blood NEGATIVE Ery/ul (0-5); Epithelial Cells RARE /HPF (FEW); Glucose NEGATIVE (NEGATIVE); Ketones NEGATIVE (NEGATIVE); Leukocyte Esterase NEGATIVE (NEGATIVE); Mucus SLIGHT /HPF (NEGATIVE); Nitrite NEGATIVE (NEGATIVE); Protein,Urine Dip NEGATIVE (Negative); Specific Gravity 1.006 (1.005-1.025); Urobilinogen NEGATIVE mg/dL (0-1); WBC 0-2 /HPF (0-5)
[2019-10-05] MEDS: Pepcid 20 MG PO SCH (20:51)
[2019-10-06] MEDS: Sodium Chloride 0.9% 1000 ML 1,000 ML IV SCH (00:56)
[2019-10-06 05:21] LABS: ALBUMIN 2.5 g/dL (3.5-5.0); ANION GAP 7.8 MEQ/L (5-15); BILIRUBIN,TOTAL 0.2 mg/dL (0.2-1.3); Calcium 8.3 mg/dL (8.4-10.2); Creatinine 1 1.46 mg/dL (0.52-1.04); MAGNESIUM 2.4 mg/dL (1.6-2.3); Potassium 3.9 mmol/L (3.5-5.1); Total Protein 5.1 g/dL (6.3-8.2)
[2019-10-06] MEDS: K-LYTE 25 MEQ PO SCH ×2 (06:14→11:06)
[2019-10-06] MEDS: Colace 100 MG PO SCH (08:02)
[2019-10-06] MEDS: ANTIVERT 25 MG PO SCH (08:02)
[2019-10-06] MEDS: DELTASONE 20 MG PO SCH (08:02)
[2019-10-06] MEDS: FEOSOL 325 MG PO SCH (08:03)
[2019-10-06] MEDS: Lexapro 10 MG PO SCH (08:04)
[2019-10-06] MEDS: Protonix 40MG Tablet PO SCH (08:05)
[2019-10-06] MEDS: Miralax Powder 17GM PACKET PO SCH (08:05)
[2019-10-06] MEDS: THERAGRAN MULTIVITAMIN PO SCH (08:06)
[2019-10-06] MEDS: Vitamin B-12 500 MCG PO SCH (08:06)
[2019-10-06] MEDS: SENOKOT 8.6 MG PO PRN (08:06)
--- NOTE | 2019-10-06 08:50 | CONS ---
CONSULT DATE: 10/05/2019 REASON FOR CONSULT: Intractable hypokalemia. HISTORY: Miss Rhiannon Lion is a very pleasant 59 year-old lady who was admitted with left wrist pain. The patient did not have any wrist injury. The patient was evaluated for rheumatic disease. Routine CMP was ordered. The patient was noted to have a critical potassium of 2.1. She was admitted to the hospital. Creatinine was elevated to 2. The patient was also having flu-like symptoms for two weeks. She was having some loose stool. She had decreased oral intake. She had vomiting for three days. In the hospital the vomiting subsided but the potassium levels were not improving. Renal consultation was called. The patient had lost about 20 pounds of weight over the last two months. REVIEW OF SYSTEMS: The patient denies any history of hypertension. No history of low potassium in the past. She was not on any loop diuretic. She had some loose stools but no gross diarrhea. Vomiting has subsided. No cardiac arrhythmia. She has been replaced aggressively today after I discussed with Dr. Harrington. No skin rash or skin itching. The patient had pain over the wrist. No stiffening. She also has involvement of small joints of hands. Not on any nonsteroidal. Not on any chemotherapy. All systems were reviewed in detail and pertinent mentioned here and in history of present illness and the rest were negative. PAST MEDICAL HISTORY: Anxiety. Gastroesophageal reflux disease. Recent voice change. History of brain aneurysm. PAST SURGICAL HISTORY: Cholecystectomy. Appendectomy. Brain aneurysmal surgery. Cyst removed from right wrist. section. Tubal ligation. Breast augmentation. MEDICATIONS: Medications reviewed and reconciled. The patient was started on potassium bicarbonate. She was on normal saline at 60 cc/hour. The patient was on prednisone 20, Lexapro, Pepcid, iron. All medications were reviewed and details of doses were noted. ALLERGIES: NKDA. FAMILY HISTORY: No history of renal problems in the family. PHYSICAL EXAMINATION: Reveals a lady lying in bed. Blood pressure 109/55, pulse rate 63/minute, respiratory rate 16/minute. Afebrile. HEENT: Normocephalic, atraumatic, slightly pale conjunctivae. NECK: Supple. No JVD. CHEST: Clear to auscultation. CVS: S1, S2 normal. No rub or gallop. ABDOMEN: Soft, nontender. No organomegaly. EXTREMITIES: No cyanosis, clubbing or edema. Arthritic changes noted. SKIN: No skin rash. Skin turgor normal. MUSCULOSKELETAL: Pain over the small joints of the hand noted. Wrist was noted. NEUROLOGIC: The patient is alert, awake, oriented x3. LAB DATA AND TESTS: Labs were reviewed in detail. ASSESSMENT: 1) Hypokalemia: Intractable and severe. No cardiac arrhythmia. There are two possible etiologies. When the patient was admitted she had flu-like symptoms and was having poor appetite and vomiting which could have caused hypokalemia. If it is not repleted aggressively, persistent hypokalemia can lead to interstitial nephritis/further tubular damage and potassium losing nephropathy. Other possibility is most likely autoimmune disease related. Renal tubular acidosis type 1. Sometimes RTA type 1 can be presenting symptoms for an autoimmune disease like systemic sclerosis/Sjogren's syndrome ALKA and Centromere antibody is positive. Also serum bicarbonate levels are low at 16. No anion gap. I discussed with Dr. Harrington. We will replace about 200 mEq of potassium today. We will also give 2 gm magnesium. We will check urine x2 for potassium. I will closely follow up the patient. 2) Metabolic acidosis: Nonanion gap. It could be due to renal acidosis type 1 and also normal saline infusion could have been contributory. We will check urine anion gap. In the meantime, I will reduce IV fluids to 10 cc/hour, check urine pH. If urine pH is more than 5.5 it reflects renal tubular acidosis type 1 (distal RTA). I will continue potassium bicarbonate at this time. 3) Hypomagnesemia: Replace 2 gm of magnesium. 4) Anemia, not otherwise specified: Hold iron supplementation as she is having loose stools. Also rule out paraproteinemia. Paraproteinemia can lead to renal acidosis type 2. 5) Autoimmune disease: Continue to monitor for any autoimmune etiology. All questions answered. I will follow up closely.
[2019-10-06 11:23] VITALS: BP 99/56; PULSE 74; O2SAT 95
--- NOTE | 2019-10-06 14:02 | PCM.DCORD ---
- Discharge Discharge Date: 10/06/19 Disposition: Home, Self-Care Condition: Fair Prescriptions: New Docusate Sodium 100 mg [Colace 100 MG] 100 mg PO BID #60 capsule Prednisone 20 mg [Deltasone 20 mg] 20 mg PO DAILY #5 tablet Potassium Bicarbonate 25 MEQ [K-Lyte 25 Meq] 25 meq PO BID #60 tab Polyethylene Glycol 3350 17 gm [Miralax Powder 17GM PACKET] 17 gm PO DAILY PRN #30 packet PRN Reason: Constipation Multivitamins,Therapeutic Tab* [Theragran Multivitamin] 1 tab PO QAM #30 tab Cyanocobalamin 500 Mcg [Vitamin B-12 500 MCG] 1,000 mcg PO DAILY #30 tablet Continue Bupropion HCl 150 mg Sr [Wellbutrin SR 150 MG] 150 mg PO DAILY Omeprazole 40 mg PO DAILY Meclizine HCl 25 mg PO DAILY Escitalopram Oxalate 20 mg PO DAILY Ranitidine HCl 300 mg PO HS Discontinued Meloxicam 15 mg PO DAILY Additional Instructions: Do not take NSAIDS; you may take tylenol for pain. Wear your left wrist brace as much as possible. Dr. Alvarez wants you to not take iron at home yet. He will decide when he sees you if he wants you to start taking iron. Follow up with: CHIRAG ALVAREZ [CONSULTING PHYSICIAN] - 10/26/19 2:20 pm WALLY BENZ [Primary Care Provider] - 1 Week SANDRA LU MD [NON-STAFF PHY W/O PRIVILEGES] - 1 Week
[2019-10-06] MEDS ORDERED: K-LYTE 25 MEQ PO SCH (22:00)
[2019-10-10 22:06] LABS: PROTEIN BETA 2 0.23 g/dL (0.18-0.50); Protein Beta 1 0.28 g/dL (0.35-0.66)
[2019-10-10 23:43] LABS: Monoclonal Protein ID Interp See Result Note:
== END 2019-10-06 16:00 | disposition home or self-care (01) | DRG 641 ==
LOC: MED SURG 08:32 → OBSVTOIN 10-04 08:32
PROVIDERS: ADMIT Internal Medicine; ATTEND Internal Medicine
DX: E87.6 Hypokalemia (principal); N17.9 Acute kidney failure, unspecified; M25.532 Pain in left wrist; E86.0 Dehydration; E87.2 Acidosis; K59.00 Constipation, unspecified; E83.42 Hypomagnesemia; D64.9 Anemia, unspecified; R63.4 Abnormal weight loss; M35.9 Systemic involvement of connective tissue, unspecified; Z79.899 Other long term (current) drug therapy
CPT/HCPCS: 36415; 71046; 73110; 76770; 80048; 80053; 81001; 82043; 82270; 82436; 82570; 82607; 82728; 83540; 83550; 83735; 84132; 84133; 84165; 84300; 84550; 85025; 85027; 86038; 86235; 86334; 86430; 93005; J3475; J3480; L3908; A9270-GY; G0378